=== PATIENT | male | born 1990 | race Native Hawaiian/Other Pacific Islander ===

== ENCOUNTER 2016-10-29 19:25 | Emergency (ER) | payer SELFPAY ==
[~2016-10-29] VITALS: Ht 180.3 cm; Wt 78.0 kg
[2016-10-29 19:27] VITALS: BP 126/74; PULSE 80; RESP 15; TEMP 98.6; O2SAT 100
[2016-10-29] MEDS ORDERED: SODIUM CHLOR 0.9% 1000 ML INJ 1,000 ML IV SCH (19:57)
--- NOTE | 2016-10-29 19:58 | PD ---
HPI Chief Complaint: Abdominal Pain Time Seen by Provider: 20:01 Travel History International Travel<30 days: No Contact w/Intl Traveler<30days: No Traveled to known affect area: No History of Present Illness HPI 26-year-old male presents to the emergency department for evaluation of lower abdominal pain that started yesterday. Patient states that he ate [employer] and the pain started shortly after. He states it has been intermittent since then. The patient denies any previous abdominal surgeries. Patient denies any fevers or chills. No chest pain or shortness of breath. No vomiting. He states he has had several episodes of diarrhea. The patient reports no chronic medical problems and takes no prescribed medications. PFSH Past Medical History Gastrointestinal Disorders: Yes (ABD PAIN 2 YEARS AGO PER PT BC OF GALL BLADDER ) Headaches: Yes Past Surgical History Surgical History: No Previous Surgery Social History Alcohol Use: No Tobacco Use: Yes Substance Use: No Allergies-Medications (Allergen,Severity, Reaction): Coded Allergies: No Known Allergies (Unverified , 10/29/16) Reported Meds & Prescriptions Reported Meds & Active Scripts Active Imodium A-D (Loperamide HCl) 2 Mg Cap 2 Mg PO Q6H PRN Omeprazole 20 Mg Tab 20 Mg PO DAILY Review of Systems Except as stated in HPI: all other systems reviewed are Neg Physical Exam Narrative GENERAL: Well-nourished, well-developed male patient, ambulatory. Afebrile. SKIN: Focused skin assessment warm/dry. HEAD: Normocephalic. Atraumatic. EYES: No scleral icterus. No injection or drainage. NECK: Supple, trachea midline. No JVD or lymphadenopathy. CARDIOVASCULAR: Regular rate and rhythm without murmurs, gallops, or rubs. RESPIRATORY: Breath sounds equal bilaterally. No accessory muscle use. Lungs sounds are clear to auscultation. GASTROINTESTINAL: Abdomen soft and nondistended. Patient has tenderness over left upper quadrant, left lower quadrant, epigastric region, right upper quadrant. No right lower quadrant tenderness to palpation. MUSCULOSKELETAL: No cyanosis, or edema. BACK: Nontender without obvious deformity. No CVA tenderness. Data Data Last Documented VS Vital Signs Date Time Temp Pulse Resp B/P Pulse Ox O2 Delivery O2 Flow Rate FiO2 10/29/16 19:27 98.6 80 15 126/74 100 Room Air Orders Complete Blood Count With Diff (10/29/16 19:57) Comprehensive Metabolic Panel (10/29/16 19:57) Lipase (10/29/16 19:57) Urinalysis - C+S If Indicated (10/29/16 19:57) Ct Abd/Pel W Iv Contrast(Rout) (10/29/16 19:57) Iv Access Insert/Monitor (10/29/16 19:57) Ecg Monitoring (10/29/16 19:57) Oximetry (10/29/16 19:57) Ondansetron Inj (Zofran Inj) (10/29/16 20:00) Pantoprazole Inj (Protonix Inj) (10/29/16 20:00) Sodium Chlor 0.9% 1000 Ml Inj (Ns 1000 M (10/29/16 19:57) Sodium Chloride 0.9% Flush (Ns Flush) (10/29/16 20:00) Iohexol 350 Inj (Omnipaque 350 Inj) (10/29/16 21:00) Labs Laboratory Tests Test 10/29/16 10/29/16 20:03 20:19 White Blood Count 11.5 TH/MM3 Red Blood Count 5.26 MIL/MM3 Hemoglobin 16.3 GM/DL Hematocrit 48.5 % Mean Corpuscular Volume 92.2 FL Mean Corpuscular Hemoglobin 30.9 PG Mean Corpuscular Hemoglobin 33.5 % Concent Red Cell Distribution Width 13.6 % Platelet Count 307 TH/MM3 Mean Platelet Volume 9.3 FL Neutrophils (%) (Auto) 56.3 % Lymphocytes (%) (Auto) 30.4 % Monocytes (%) (Auto) 10.0 % Eosinophils (%) (Auto) 1.9 % Basophils (%) (Auto) 1.4 % Neutrophils # (Auto) 6.5 TH/MM3 Lymphocytes # (Auto) 3.5 TH/MM3 Monocytes # (Auto) 1.1 TH/MM3 Eosinophils # (Auto) 0.2 TH/MM3 Basophils # (Auto) 0.2 TH/MM3 CBC Comment DIFF FINAL Differential Comment Sodium Level 138 MEQ/L Potassium Level 3.8 MEQ/L Chloride Level 102 MEQ/L Carbon Dioxide Level 30.3 MEQ/L Anion Gap 6 MEQ/L Blood Urea Nitrogen 12 MG/DL Creatinine 1.01 MG/DL Estimat Glomerular Filtration 89 ML/MIN Rate Random Glucose 74 MG/DL Calcium Level 8.6 MG/DL Total Bilirubin 0.7 MG/DL Aspartate Amino Transf 25 U/L (AST/SGOT) Alanine Aminotransferase 47 U/L (ALT/SGPT) Alkaline Phosphatase 67 U/L Total Protein 7.8 GM/DL Albumin 4.0 GM/DL Lipase 126 U/L Urine Color YELLOW Urine Turbidity CLEAR Urine pH 6.5 Urine Specific [place] 1.023 Urine Protein NEG mg/dL Urine Glucose (UA) NEG mg/dL Urine Ketones NEG mg/dL Urine Occult Blood TRACE Urine Nitrite NEG Urine Bilirubin NEG Urine Urobilinogen 4.0 MG/DL Urine Leukocyte Esterase NEG Urine RBC LESS THAN 1 /hpf Urine WBC LESS THAN 1 /hpf Urine Squamous Epithelial <1 /hpf Cells Urine Mucus FEW /lpf Microscopic Urinalysis Comment CULT NOT INDICATED MDM Medical Decision Making Medical Screen Exam Complete: Yes Emergency Medical Condition: Yes Medical Record Reviewed: Yes Interpretation(s) CT abdomen/pelvis - CONCLUSION: Distended stomach, otherwise negative. I do not seeabdominal pain.. Differential Diagnosis Pancreatitis versus cholecystitis versus gastroenteritis versus gastritis versus diverticulitis Narrative Course 26-year-old male presents to the emergency department for evaluation of abdominal pain intermittently since yesterday. Patient does have significant tenderness to palpation on exam. CBC, CMP, lipase, UA are ordered and pending. CT abdomen/pelvis with IV contrast is ordered and pending. Patient is given normal saline 1 L IV bolus, Protonix 40 mg IV, Zofran 4 mg IV. CBC shows slight leukocytosis of 11.5. CMP is unremarkable. Lipase is 126. UA is negative for acute infection. CT abdomen/pelvis shows a distended stomach , otherwise negative. Patient is stable for discharge. He'll be discharged with a prescription for omeprazole and Imodium for diarrhea. He is to return for any acute worsening of symptoms. He verbalizes agreement. The patient was discharged in stable condition with instructions, including return instructions and follow up instructions. Diagnosis Primary Impression: Gastroenteritis Referrals: Primary Care Physician call for appointment Patient Instructions: Gastroenteritis (ED), General Instructions Departure Forms: School Release, Return to School Date: October 31, 2016 Tests/Procedures Additional Instructions: Take omeprazole daily as directed Take Imodium as started as needed for diarrhea. [place] diet. Follow-up with your primary care physician. Return to the emergency department for any acute worsening of symptoms. Med/Other Pt SpecificInfo: Prescription(s) given Scripts Loperamide (Imodium A-D)2 Mg Cap2 Mg PO Q6H PRN (DIARRHEA) #16 CAP Ref 0 Prov:Ria Patton 10/29/16 Omeprazole 20 Mg Tab20 Mg PO DAILY #30 TAB Ref 0 Prov:Ria Patton 10/29/16 Disposition: 01 DISCHARGE HOME Condition: Stable Ria Patton October 29, 2016 19:58
[2016-10-29] MEDS ORDERED: SODIUM CHLORIDE 0.9% FLUSH 10 ML FLUSH IV FLUSH PRN (20:00)
[2016-10-29] MEDS ORDERED: PANTOPRAZOLE SODIUM 40 MG VIAL IVP ONE (20:00)
[2016-10-29] MEDS ORDERED: ONDANSETRON HCL 4 MG/2 ML VIAL IVP ONE (20:00)
[2016-10-29 20:28] LABS: AUTOMATED NEUTROPHIL # 6.5 TH/MM3 (1.8-7.7); BASOPHIL # 0.2 TH/MM3 (0-0.2); BASOPHIL % 1.4 % (0.0-2.0); EOSINOPHIL # 0.2 TH/MM3 (0-0.4); EOSINOPHIL % 1.9 % (0.0-4.0); HEMATOCRIT 48.5 % (39.0-51.0); HEMO FLAGS DIFF FINAL; LYMPH % 30.4 % (9.0-44.0); LYMPHOCYTE # 3.5 TH/MM3 (1.0-4.8); MEAN CELL VOLUME 92.2 FL (80.0-100.0); MEAN CORPUSCULAR HEMOGLOBIN 30.9 PG (27.0-34.0); MEAN CORPUSCULAR HGB CONC 33.5 % (32.0-36.0); NEUT % 56.3 % (16.0-70.0); PLATELET COUNT 307 TH/MM3 (150-450); RED BLOOD COUNT 5.26 MIL/MM3 (4.50-5.90); RED CELL DISTRIBUTION WIDTH 13.6 % (11.6-17.2); WHITE BLOOD COUNT 11.5 TH/MM3 (4.0-11.0)
[2016-10-29 20:36] LABS: BLOOD, URINE TRACE (NEG); COMMENT (UR) CULT NOT INDICATED; CULTURE IF INDICATED CULT NOT INDICATED; GLUCOSE,URINE NEG (NEG); KETONE, URINE NEG (NEG); MUCUS URINE FEW /lpf (OCC); NITRITE,URINE NEG (NEG); PH, URINE 6.5 (5.0-8.5); SQUAMOUS EPITHELIAL CELL URINE <1 /hpf (0-5); URINE COLOR YELLOW (YELLW/STRAW)
[2016-10-29 20:50] LABS: ANION GAP 6 MEQ/L (5-15); AST (GOT) 25 U/L (15-37); BICARBONATE 30.3 MEQ/L (21.0-32.0); BLOOD UREA NITROGEN 12 MG/DL (7-18); CHLORIDE 102 MEQ/L (98-107); GLOMERULAR FILTRATION RATE 89 ML/MIN (>89); POTASSIUM 3.8 MEQ/L (3.5-5.1); SODIUM (NA) 138 MEQ/L (136-145)
[2016-10-29 20:53] LABS: ALKALINE PHOSPHATASE 67 U/L (45-117); ALT (GPT) 47 U/L (12-78); TOTAL BILIRUBIN ADULT 0.7 MG/DL (0.2-1.0)
[2016-10-29] MEDS ORDERED: IOHEXOL 350 MG/ML 10 ML VIAL (for RAD DIAG) IV ONE (21:00)
--- NOTE | 2016-10-29 21:14 | RADRPT ---
EXAM DATE/TIME: 10/29/2016 20:52 [facility] COMPARISON: No previous studies available for comparison. INDICATIONS : Lower abdominal pain with nausea. IV CONTRAST: 96 cc Omnipaque 350 (iohexol) IV ORAL CONTRAST: No oral contrast ingested. RADIATION DOSE: 11.78 CTDIvol (mGy) MEDICAL HISTORY : None SURGICAL HISTORY : None. ENCOUNTER: Initial ACUITY: 1 day PAIN SCALE: 6/10 LOCATION: Bilateral lower quadrant TECHNIQUE: Volumetric scanning of the abdomen and pelvis was performed. Using automated exposure control and ad justment of the mA and/or kV according to patient size, radiation dose was kept as low as reasonably achievable to obtain optimal diagnostic quality images. FINDINGS: The lung bases are clear. Stomach is distended with food in spite of the history of nausea. The liver, spleen, pancreas and adrenals unremarkable. There is symmetrical renal function without renal mass. The region of the cecum and terminal ileum are unremarkable. There are diverticula in the sigmoid colon without diverticulitis. Prostate bladder and seminal vesi cles unremarkable. There is no free fluid. There is no free air. I do not see inflammatory changes. CONCLUSION: Distended stomach, otherwise negative. I do not seeabdominal pain.. Danie Castillo MD FACR on October 29, 2016 at 21:09 Board Certified Radiologist. This report was verified electronically.
[2016-10-29] MEDS ORDERED: OMEP20TA PO (21:19)
[2016-10-29] MEDS ORDERED: LOPE7.5C PO (21:19)
[2016-10-29 21:34] VITALS: BP 124/70
== END 2016-10-29 21:35 | disposition home or self-care (01) ==
LOC: NEPC 19:25
DX: K52.9 Noninfective gastroenteritis and colitis, unspecified (principal); Z72.0 Tobacco use
CPT/HCPCS: 74177; 80053; 81001; 83690; 85025; 96361; 96374; 96375; 99284; C9113; J2405; J7030; Q9967

== ENCOUNTER 2016-12-03 21:37 | Emergency (ER) | payer SELFPAY ==
[~2016-12-03] VITALS: Ht 175.3 cm; Wt 91.0 kg
[~2016-12-03 21:37] MED LIST: LOPE7.5C PO; OMEP20TA PO
[2016-12-03 21:39] VITALS: BP 122/75; PULSE 109; RESP 16; TEMP 98.5; O2SAT 100
--- NOTE | 2016-12-03 22:28 | RADRPT ---
EXAM DATE/TIME: 12/03/2016 22:22 [facility] COMPARISON: No previous studies available for comparison. INDICATIONS : Left wrist pain from a fall. MEDICAL HISTORY : None. SURGICAL HISTORY : None. ENCOUNTER: Initial ACUITY: 2 days PAIN SCORE: 10/10 LOCATION: Left wrist FINDINGS: Three views of the left hand demonstrate no fracture or dislocation. Mineralization is within normal limits and there is no significant arthropathy. No soft tissue abnormality or radiopaque foreign body is identified. CONCLUSION: No acute left hand abnormality is identified. Sunny Glover MD on December 03, 2016 at 22:25 Board Certified Radiologist. This report was verified electronically.
[2016-12-03] MEDS ORDERED: IBUP800T23 PO (23:15)
--- NOTE | 2016-12-03 23:16 | PD ---
HPI Chief Complaint: Injury Time Seen by Provider: 23:14 Travel History International Travel<30 days: No Contact w/Intl Traveler<30days: No Traveled to known affect area: No History of Present Illness HPI Patient is a 26-year-old male presenting to emergency for evaluation of left wrist pain. Patient states he fell in the shower yesterday landing on his left wrist. He states the pain is an 8 out of 10 and describes it as aching and sore. Pain is alleviated with rest, exacerbated with movement. He took ibuprofen approximately 2-3 hours prior to arrival. He denies any other injuries related to the fall, he has no other complaints today. PFSH Past Medical History Gastrointestinal Disorders: Yes (ABD PAIN 2 YEARS AGO PER PT [facility] OF GALL BLADDER ) Headaches: Yes Social History Alcohol Use: No Tobacco Use: Yes Substance Use: No Allergies-Medications (Allergen,Severity, Reaction): Coded Allergies: No Known Allergies (Unverified , 12/03/16) Reported Meds & Prescriptions Reported Meds & Active Scripts Active Ibuprofen 800 Mg Tab 800 Mg PO Q6HR PRN Omeprazole 20 Mg Tab 20 Mg PO DAILY Review of Systems Except as stated in HPI: all other systems reviewed are Neg Musculoskeletal: Positive: Myalgias, Arthralgias, Limited ROM Physical Exam Narrative GENERAL: Well-nourished, well-developed patient. SKIN: Focused skin assessment warm/dry. HEAD: Normocephalic. EYES: No scleral icterus. No injection or drainage. NECK: Supple, trachea midline. No JVD or lymphadenopathy. CARDIOVASCULAR: Regular rate and rhythm without murmurs, gallops, or rubs. RESPIRATORY: Breath sounds equal bilaterally. No accessory muscle use. GASTROINTESTINAL: Abdomen soft, non-tender, nondistended. MUSCULOSKELETAL: No cyanosis, or edema. Tenderness to palpation on anterior left wrist, no obvious deformities noted, positive radial pulse, brisk less than 3 second capillary refill. Full range of motion in left hand and fingers. BACK: Nontender without obvious deformity. No CVA tenderness. Data Data Last Documented VS Vital Signs Date Time Temp Pulse Resp B/P Pulse Ox O2 Delivery O2 Flow Rate FiO2 12/03/16 21:39 98.5 109 16 122/75 100 Room Air Orders Hand, Complete ([id number]) (12/03/16 ) Support Splint (12/03/16 23:13) Cockup Hand Splint (12/03/16 ) MDM Medical Decision Making Medical Screen Exam Complete: Yes Emergency Medical Condition: Yes Interpretation(s) Last Impressions Hand X-Ray 12/03/16 0000 Signed Impressions: Service Date/Time: Saturday, December 03, 2016 22:22 - CONCLUSION: No acute left hand abnormality is identified. Sunny Glover MD Vital Signs Date Time Temp Pulse Resp B/P Pulse Ox O2 Delivery O2 Flow Rate FiO2 12/03/16 21:39 98.5 109 16 122/75 100 Room Air Differential Diagnosis Fracture versus sprain versus strain versus contusion versus other Narrative Course Patient is a 26-year-old male presenting with 1 day of left wrist pain after he fell onto an outstretched hand. Patient is neurovascularly intact, imaging is negative for acute fracture. Patient will be placed in a wrist splint. He was advised to continue range of motion exercises, alternate heat and ice to the affected area, follow-up with a primary doctor. He was also encouraged take medications as directed every 6-8 hours consistently for the next 24-48 hours and then as needed. He was encouraged to take medication with food to avoid GI upset. He was encouraged to return to emergency department for any new or worsening symptoms. He verbalized understanding of these instructions. Patient is also requesting a note for school. Patient is stable for discharge. Diagnosis Primary Impression: Left wrist sprain Qualified Code: S63.502A - Left wrist sprain, initial encounter Referrals: [facility] Primary Care Physician Patient Instructions: General Instructions, Wrist Sprain (ED) Departure Forms: School Release, Return to School Date: Dec 05, 2016 Tests/Procedures Additional Instructions: Rest, ice, elevate extremity Wear wrist splint for comfort Continue range of motion exercises Follow up with your primary doctor or at the [facility] Return to emergency department for any new or worsening symptoms Med/Other Pt SpecificInfo: Prescription(s) given Scripts Ibuprofen 800 Mg [id number] Mg PO Q6HR PRN (PAIN) #40 TAB Ref 0 Prov:Chhaya Sheikh 12/03/16 Disposition: 01 DISCHARGE HOME Condition: Stable Chhaya Sheikh Dec 03, 2016 23:15
== END 2016-12-03 23:33 | disposition home or self-care (01) ==
LOC: NEPD 21:37
DX: S63.502A Unspecified sprain of left wrist, initial encounter (principal); Z72.0 Tobacco use; W18.2XXA Fall in (into) shower or empty bathtub, initial encounter
CPT/HCPCS: 73130; 99283; L3908